=== PATIENT | male | born 1990 | race Caucasian/White ===

== ENCOUNTER 2022-09-27 20:33 | Emergency (ER) | payer BC ==
[~2022-09-27] VITALS: Ht 188 cm; Wt 113.4 kg
[2022-09-27 23:45] VITALS: BP 137/101
== END 2022-09-28 00:25 | disposition home or self-care (01) ==
LOC: ER 20:33
DX: S01.81XA Laceration without foreign body of other part of head, initial encounter (principal); W22.8XXA Striking against or struck by other objects, initial encounter; F17.200 Nicotine dependence, unspecified, uncomplicated
CPT/HCPCS: 12011; 99282-25